=== PATIENT | male | born 1990 | race Caucasian/White ===

== ENCOUNTER 2018-09-28 17:52 | Inpatient (IN) | payer MEDICAID, OTHER ==
[~2018-09-28] VITALS: Ht 182.9 cm; Wt 149.0 kg
[~2018-09-28 17:52] MED LIST: CHLO25TA23 PO; HYDR50CA10 PO; LORA-192 PO; OLAN15TA2 PO; SERT25TA PO; ZOLP10TA2 PO
[2018-09-28] MEDS ORDERED: HALO10 PO (18:29)
[2018-09-28 19:20] LABS: BASOPHILS % (AUTO) 0.9 % (0.0-2.0); EOSINOPHILS % (AUTO) 2.9 % (1.0-6.0); HEMATOCRIT 43.1 % (41-53); HEMOGLOBIN 14.7 g/dL (13.5-17.5); LYMPHOCYTES # (AUTO) 2.6 K/uL (1.0-4.8); LYMPHOCYTES % (AUTO) 26.9 % (22.0-44.0); MEAN CORPUSCULAR HEMOGLOBIN 28.4 pg (26.0-34.0); MEAN CORPUSCULAR HGB CONC 34.1 G/dL (31.0-37.0); MEAN CORPUSCULAR VOLUME 84 fL (80-100); MONOCYTES # (AUTO) 0.6 K/uL (0.1-1.0); MONOCYTES % (AUTO) 6.2 % (2.0-9.0); NEUTROPHILS % (AUTO) 63.1 % (40.0-70.0); PLATELET COUNT (AUTO) 212 K/uL (150-450); RED BLOOD CELL COUNT(AUTO) 5.17 MIL/uL (4.50-5.90); RED CELL DISTRIBUTION WIDTH 13.3 % (11.5-14.5)
[2018-09-28 20:07] LABS: AMPHET/METH SCREEN,URINE NEGATIVE (NEGATIVE); BARBITURATE SCREEN, URINE NEGATIVE (NEGATIVE); BENZODIAZEPINES SCREEN,URINE NEGATIVE (NEGATIVE); CANNABINOID SCREEN,URINE NEGATIVE (NEGATIVE); COCAINE SCREEN,URINE NEGATIVE (NEGATIVE); METHADONE SCREEN, URINE NEGATIVE (NEGATIVE); OPIATE SCREEN,URINE NEGATIVE (NEGATIVE); PHENCYCLIDINE SCREEN,URINE NEGATIVE (NEGATIVE)
[2018-09-28] MEDS ORDERED: QUEtiapine FUMARATE 100 MG TABLET PO ONE (20:30)
[2018-09-28 20:51] LABS: ANION GAP 12 mmol/L (8-16); CALCIUM, TOTAL 9.3 mg/dL (8.8-10.5); CARBON DIOXIDE 26 mmol/L (22-29); CHLORIDE 103 mmol/L (98-107); GLOMERULAR FILTR. RATE CALC > 60 mL/min (>60); GLUCOSE,RANDOM 102 mg/dL (70-110); POTASSIUM 4.2 mmol/L (3.5-5.1); SODIUM SERUM 141 mmol/L (136-145); UREA NITROGEN, BLOOD 12 mg/dL (7-18)
[2018-09-28 20:55] LABS: ALANINE AMINOTRANSFERASE 44 U/L (12-78); ALKALINE PHOSPHATASE 91 U/L (46-116); ASPARTATE AMINOTRANSFERASE 18 U/L (15-37); BILIRUBIN,TOTAL 0.4 mg/dL (0.1-1.0); TOTAL PROTEIN, SERUM 8.4 g/dL (6.4-8.2)
[2018-09-29] MEDS ORDERED: ZOLPIDEM TARTRATE 10 MG TABLET PO ONE
[2018-09-29] MEDS: LORazepam 2 MG TABLET PO PRN ×2 (09:16→16:10)
[2018-09-29] MEDS: HALOPERIDOL 5 MG TABLET PO PRN ×2 (09:16→16:10)
[2018-09-29 10:57] VITALS: BP 124/89
[2018-09-29] MEDS ORDERED: MAG HYDROX/AL HYDROX/SIMETH ES 30 ML SUSPENSION UDCUP PO PRN (12:15)
[2018-09-29] MEDS ORDERED: GuaiFENesin/D-METHORPHAN [SUGAR-FREE] 200-20MG/10 ML SYRUP UDCUP PO PRN (12:15)
[2018-09-29] MEDS ORDERED: CloNIDine HCL 0.1 MG TABLET PO PRN (12:15)
[2018-09-29] MEDS ORDERED: ACETAMINOPHEN 325 MG TABLET PO PRN (12:15)
[2018-09-29] MEDS ORDERED: PETROLATUM,WHITE 28 GM JELLY TP PRN (12:15)
[2018-09-29] MEDS ORDERED: DOCUSATE SODIUM 100 MG CAPSULE PO PRN (12:15)
[2018-09-29] MEDS ORDERED: LOPERAMIDE HCL 2 MG CAPSULE PO PRN (12:15)
[2018-09-29] MEDS ORDERED: ONDANSETRON HCL 4 MG TABLET PO PRN (12:15)
[2018-09-29] MEDS ORDERED: MAGNESIUM HYDROXIDE SUSPENSION 30 ML UDCUP PO PRN (12:15)
[2018-09-29] MEDS ORDERED: NICOTINE 14 MG/24 HOUR PATCH TD PRN (12:15)
[2018-09-29] MEDS ORDERED: IBUPROFEN 400 MG TABLET PO PRN (12:15)
[2018-09-29] MEDS ORDERED: ALBUTEROL SULFATE HFA 90 MCG/PUFF 8 GM INHALER IH PRN (12:15)
[2018-09-29 16:54] VITALS: BP 12/83
[2018-09-29] MEDS: BENZTROPINE MESYLATE 2 MG TABLET PO SCH (20:05)
[2018-09-29] MEDS: HALOPERIDOL 10 MG TABLET PO SCH (20:05)
[2018-09-29] MEDS: ZOLPIDEM TARTRATE 10 MG TABLET PO PRN (20:05)
[2018-09-30 06:29] LABS: BASOPHILS % (AUTO) 0.8 % (0.0-2.0); EOSINOPHILS % (AUTO) 2.8 % (1.0-6.0); HEMATOCRIT 41.8 % (41-53); LYMPHOCYTES # (AUTO) 3.6 K/uL (1.0-4.8); LYMPHOCYTES % (AUTO) 36.1 % (22.0-44.0); MEAN CORPUSCULAR HEMOGLOBIN 28.3 pg (26.0-34.0); MEAN CORPUSCULAR HGB CONC 33.6 G/dL (31.0-37.0); MEAN CORPUSCULAR VOLUME 84 fL (80-100); MONOCYTES # (AUTO) 0.6 K/uL (0.1-1.0); MONOCYTES % (AUTO) 6.2 % (2.0-9.0); NEUTROPHILS # (AUTO) 5.4 K/uL (1.8-7.7); NEUTROPHILS % (AUTO) 54.1 % (40.0-70.0); PLATELET COUNT (AUTO) 192 K/uL (150-450); RED BLOOD CELL COUNT(AUTO) 4.96 MIL/uL (4.50-5.90); RED CELL DISTRIBUTION WIDTH 13.2 % (11.5-14.5)
[2018-09-30 06:38] LABS: HEMOGLOBIN A1C 6.3 % (4.5-6.2)
[2018-09-30 07:00] LABS: ALANINE AMINOTRANSFERASE 34 U/L (12-78); ALBUMIN 3.6 g/dL (3.4-5.0); ALKALINE PHOSPHATASE 86 U/L (46-116); ANION GAP 9 mmol/L (8-16); ASPARTATE AMINOTRANSFERASE 13 U/L (15-37); BILIRUBIN,TOTAL 0.4 mg/dL (0.1-1.0); CALCIUM, TOTAL 8.9 mg/dL (8.8-10.5); CARBON DIOXIDE 30 mmol/L (22-29); CHLORIDE 104 mmol/L (98-107); CHOL/HDL RATIO 4.5 (4.2-7.3); CHOLESTEROL 144 mg/dL (131-200); CREATININE 0.92 mg/dL (0.60-1.30); GLOMERULAR FILTR. RATE CALC > 60 mL/min (>60); GLUCOSE,RANDOM 103 mg/dL (70-110); HDL CHOLESTEROL 32 mg/dL (40-60); LDL CHOL (CALC.) 64 mg/dL (0-130); POTASSIUM 4.2 mmol/L (3.5-5.1); SODIUM SERUM 143 mmol/L (136-145); TOTAL PROTEIN, SERUM 7.3 g/dL (6.4-8.2); TRIGLYCERIDES 238 mg/dL (15-150); UREA NITROGEN, BLOOD 12 mg/dL (7-18)
[2018-09-30 08:20] VITALS: BP 110/72
[2018-09-30] MEDS: HALOPERIDOL 5 MG TABLET PO PRN ×2 (09:40→16:00)
[2018-09-30] MEDS: LORazepam 2 MG TABLET PO PRN ×2 (13:12→17:12)
[2018-09-30 16:54] VITALS: BP 147/95
[2018-09-30] MEDS: HALOPERIDOL 10 MG TABLET PO SCH (20:15)
[2018-09-30] MEDS: ZOLPIDEM TARTRATE 10 MG TABLET PO PRN (20:15)
[2018-09-30] MEDS: BENZTROPINE MESYLATE 2 MG TABLET PO SCH (20:15)
[2018-10-01] MEDS: LORazepam 2 MG TABLET PO PRN ×4 (00:57→23:21)
[2018-10-01 10:18] VITALS: BP 109/60
[2018-10-01] MEDS: HALOPERIDOL 5 MG TABLET PO PRN (12:24)
[2018-10-01 16:21] VITALS: BP 149/78
[2018-10-01] MEDS: BENZTROPINE MESYLATE 2 MG TABLET PO SCH (20:00)
[2018-10-01] MEDS: HALOPERIDOL 10 MG TABLET PO SCH (20:00)
[2018-10-01] MEDS: ZOLPIDEM TARTRATE 10 MG TABLET PO PRN (20:00)
[2018-10-02] MEDS: HALOPERIDOL 5 MG TABLET PO PRN ×2 (08:19→12:55)
[2018-10-02] MEDS: LORazepam 2 MG TABLET PO PRN ×2 (08:20→12:55)
[2018-10-02 08:30] VITALS: BP 106/78
[2018-10-02] MEDS ORDERED: HALO100A IM (12:58)
[2018-10-02] MEDS ORDERED: BENZ2TAB10 PO (12:58)
[2018-10-05] MEDS ORDERED: HALOPERIDOL DECANOATE 100 MG/ML VIAL IM SCH (09:00)
== END 2018-10-02 14:05 | disposition home or self-care (01) | DRG 750 ==
LOC: EMS 17:52 → 3EC 09-29 09:31 → EMS 09-29 10:13
PROVIDERS: ADMIT Psychiatry & Neurology Psychiatry; ATTEND Psychiatry & Neurology Psychiatry
DX: F20.9 Schizophrenia, unspecified (principal); R45.850 Homicidal ideations; E66.9 Obesity, unspecified; F31.9 Bipolar disorder, unspecified; G44.209 Tension-type headache, unspecified, not intractable; R73.03 Prediabetes; Z79.899 Other long term (current) drug therapy; Z68.41 Body mass index [BMI] 40.0-44.9, adult
CPT/HCPCS: 83036; 84443; G0480

== ENCOUNTER 2018-10-04 17:14 | Inpatient (IN) | payer MEDICAID, OTHER ==
[~2018-10-04] VITALS: Ht 182.9 cm; Wt 148.2 kg
[~2018-10-04 17:14] MED LIST changes: +BENZ2TAB10 PO; -CHLO25TA23 PO; +HALO10 PO; +HALO100A IM; -HYDR50CA10 PO; -LORA-192 PO; -OLAN15TA2 PO; -SERT25TA PO; -ZOLP10TA2 PO
[2018-10-04 17:35] LABS: GLUCOSE,POINT OF CARE 143 MG/DL (70-110)
[2018-10-04 19:49] LABS: BASOPHILS % (AUTO) 0.6 % (0.0-2.0); EOSINOPHILS % (AUTO) 1.3 % (1.0-6.0); HEMATOCRIT 42.2 % (41-53); HEMOGLOBIN 14.6 g/dL (13.5-17.5); LYMPHOCYTES # (AUTO) 2.7 K/uL (1.0-4.8); LYMPHOCYTES % (AUTO) 24.5 % (22.0-44.0); MEAN CORPUSCULAR HEMOGLOBIN 28.8 pg (26.0-34.0); MEAN CORPUSCULAR HGB CONC 34.6 G/dL (31.0-37.0); MEAN CORPUSCULAR VOLUME 83 fL (80-100); MONOCYTES # (AUTO) 0.6 K/uL (0.1-1.0); MONOCYTES % (AUTO) 5.5 % (2.0-9.0); NEUTROPHILS # (AUTO) 7.4 K/uL (1.8-7.7); NEUTROPHILS % (AUTO) 68.1 % (40.0-70.0); PLATELET COUNT (AUTO) 230 K/uL (150-450); RED BLOOD CELL COUNT(AUTO) 5.07 MIL/uL (4.50-5.90); RED CELL DISTRIBUTION WIDTH 13.1 % (11.5-14.5)
[2018-10-04 19:58] LABS: ANION GAP 11 mmol/L (8-16); CALCIUM, TOTAL 9.1 mg/dL (8.8-10.5); CARBON DIOXIDE 25 mmol/L (22-29); CHLORIDE 102 mmol/L (98-107); CREATININE 0.75 mg/dL (0.60-1.30); GLOMERULAR FILTR. RATE CALC > 60 mL/min (>60); GLUCOSE,RANDOM 121 mg/dL (70-110); POTASSIUM 3.8 mmol/L (3.5-5.1); SODIUM SERUM 138 mmol/L (136-145); UREA NITROGEN, BLOOD 9 mg/dL (7-18)
[2018-10-04 20:05] LABS: ALANINE AMINOTRANSFERASE 37 U/L (12-78); ALBUMIN 4.1 g/dL (3.4-5.0); ALKALINE PHOSPHATASE 97 U/L (46-116); ASPARTATE AMINOTRANSFERASE 19 U/L (15-37); BILIRUBIN,TOTAL 0.3 mg/dL (0.1-1.0); TOTAL PROTEIN, SERUM 8.5 g/dL (6.4-8.2)
[2018-10-04] MEDS ORDERED: LORazepam 2 MG TABLET PO ONE (21:00)
[2018-10-04] MEDS ORDERED: RisperiDONE 1 MG TABLET PO SCH (21:45)
[2018-10-04 23:03] LABS: AMPHET/METH SCREEN,URINE NEGATIVE (NEGATIVE); BARBITURATE SCREEN, URINE NEGATIVE (NEGATIVE); BENZODIAZEPINES SCREEN,URINE NEGATIVE (NEGATIVE); CANNABINOID SCREEN,URINE NEGATIVE (NEGATIVE); COCAINE SCREEN,URINE NEGATIVE (NEGATIVE); METHADONE SCREEN, URINE NEGATIVE (NEGATIVE); OPIATE SCREEN,URINE NEGATIVE (NEGATIVE); PHENCYCLIDINE SCREEN,URINE NEGATIVE (NEGATIVE)
[2018-10-05 00:45] VITALS: BP 109/69
[2018-10-05] MEDS: ZOLPIDEM TARTRATE 10 MG TABLET PO PRN ×2 (00:55→20:22)
[2018-10-05 02:45] LABS: APPEARANCE,URINE TURBID (CLEAR); BILIRUBIN,URINE NEGATIVE (NEGATIVE); GLUCOSE, URINE (UA) NEGATIVE (NEGATIVE); KETONES,URINE NEGATIVE (NEGATIVE); LEUKOCYTE ESTERASE ,URINE NEGATIVE (NEGATIVE); NITRATE,URINE NEGATIVE (NEGATIVE); OCCULT BLOOD,URINE NEGATIVE (NEGATIVE); PH,URINE 5.5 (5.0-8.0); PROTEIN,URINE NEGATIVE (NEGATIVE); UROBILINOGEN,URINE 0.2 mg/dL (<=1.0)
[2018-10-05 06:39] LABS: CHOL/HDL RATIO 4.6 (4.2-7.3)
[2018-10-05 08:00] VITALS: BP 128/85
[2018-10-05] MEDS: BENZTROPINE MESYLATE 1 MG TABLET PO SCH ×2 (09:05→16:18)
[2018-10-05] MEDS: LORazepam 2 MG TABLET PO PRN ×3 (09:06→18:37)
[2018-10-05] MEDS ORDERED: LACTULOSE 20 GM/30 ML SOLUTION UDCUP PO PRN (15:45)
[2018-10-05] MEDS ORDERED: HALOPERIDOL 5 MG TABLET PO PRN (15:45)
[2018-10-05] MEDS: RisperiDONE 3 MG TABLET PO SCH (16:18)
[2018-10-05 18:35] VITALS: BP 129/79
[2018-10-06 08:00] VITALS: BP 157/96
[2018-10-06] MEDS: RisperiDONE 3 MG TABLET PO SCH (09:19)
[2018-10-06] MEDS: BENZTROPINE MESYLATE 1 MG TABLET PO SCH ×2 (09:19→16:28)
[2018-10-06] MEDS: LORazepam 2 MG TABLET PO PRN ×3 (09:50→21:17)
[2018-10-06] MEDS ORDERED: PALIPERIDONE PALMITATE 234 MG/1.5 ML SYRINGE IM ONE (11:30)
[2018-10-06] MEDS ORDERED: PALI234D IM (13:47)
[2018-10-06 16:55] VITALS: BP 111/77
[2018-10-06] MEDS: ZOLPIDEM TARTRATE 10 MG TABLET PO PRN (20:31)
[2018-10-07 01:10] VITALS: BP 134/73
[2018-10-07 08:00] VITALS: BP 135/94
[2018-10-07] MEDS: LORazepam 2 MG TABLET PO PRN ×2 (08:31→12:58)
[2018-10-07] MEDS: BENZTROPINE MESYLATE 1 MG TABLET PO SCH ×2 (08:31→16:33)
[2018-10-07 11:40] LABS: GLUCOMETER DEV NAME(LOC) 3E.I; GLUCOSE,POINT OF CARE 112 MG/DL (70-110)
[2018-10-07] MEDS: MetFORMIN HCL 500 MG TABLET PO SCH (11:43)
[2018-10-07 17:13] VITALS: BP 140/98
[2018-10-07] MEDS: ZOLPIDEM TARTRATE 10 MG TABLET PO PRN (20:23)
[2018-10-08 00:13] VITALS: BP 142/92
[2018-10-08] MEDS: LORazepam 2 MG TABLET PO PRN ×4 (00:33→20:48)
[2018-10-08 06:10] LABS: GLUCOMETER DEV NAME(LOC) 3E.I; GLUCOSE,POINT OF CARE 98 MG/DL (70-110)
[2018-10-08] MEDS: MetFORMIN HCL 500 MG TABLET PO SCH (06:36)
[2018-10-08 08:15] VITALS: BP 144/74
[2018-10-08] MEDS: BENZTROPINE MESYLATE 1 MG TABLET PO SCH ×2 (08:41→16:43)
[2018-10-08 17:05] LABS: GLUCOMETER DEV NAME(LOC) 3E.I; GLUCOSE,POINT OF CARE 112 MG/DL (70-110)
[2018-10-08 19:14] VITALS: BP 127/74
[2018-10-08] MEDS: ZOLPIDEM TARTRATE 10 MG TABLET PO PRN (21:27)
[2018-10-09 06:14] LABS: GLUCOMETER DEV NAME(LOC) 3E.I; GLUCOSE,POINT OF CARE 116 MG/DL (70-110)
[2018-10-09] MEDS: MetFORMIN HCL 500 MG TABLET PO SCH (06:50)
[2018-10-09] MEDS: BENZTROPINE MESYLATE 1 MG TABLET PO SCH (09:18)
[2018-10-09 09:51] VITALS: BP 108/63
[2018-10-09] MEDS: LORazepam 2 MG TABLET PO PRN (12:24)
[2018-10-09] MEDS ORDERED: METF-960 PO (14:22)
[2018-10-10] MEDS ORDERED: PALI234D IM (10:43)
== END 2018-10-09 14:50 | disposition home or self-care (01) | DRG 750 ==
LOC: EMS 17:16 → 3EI 21:30
PROVIDERS: ADMIT Psychiatry & Neurology Psychiatry; ATTEND Psychiatry & Neurology Psychiatry
DX: F20.0 Paranoid schizophrenia (principal); R45.851 Suicidal ideations; R45.850 Homicidal ideations; E78.5 Hyperlipidemia, unspecified; F31.9 Bipolar disorder, unspecified; G44.209 Tension-type headache, unspecified, not intractable; G47.33 Obstructive sleep apnea (adult) (pediatric); K59.00 Constipation, unspecified; R73.03 Prediabetes
CPT/HCPCS: 87081; 94660; G0480

== ENCOUNTER 2021-12-11 15:16 | Inpatient (IN) | payer MEDICAID, OTHER ==
[~2021-12-11] VITALS: Ht 182.9 cm; Wt 143.3 kg
[~2021-12-11 15:16] MED LIST changes: -BENZ2TAB10 PO; +BENZ2TAB76 PO; -HALO10 PO; -HALO100A IM; +METF-1211 PO; +PALI234D IM
[2021-12-11 16:01] LABS: COVID AG,FIA SOURCE NASOPHARYNGEAL
[2021-12-11 16:13] LABS: AMPHET/METH SCREEN,URINE NEGATIVE (NEGATIVE); BARBITURATE SCREEN, URINE NEGATIVE (NEGATIVE); BENZODIAZEPINES SCREEN,URINE NEGATIVE (NEGATIVE); CANNABINOID SCREEN,URINE NEGATIVE (NEGATIVE); COCAINE SCREEN,URINE NEGATIVE (NEGATIVE); METHADONE SCREEN, URINE NEGATIVE (NEGATIVE); OPIATE SCREEN,URINE NEGATIVE (NEGATIVE); PHENCYCLIDINE SCREEN,URINE NEGATIVE (NEGATIVE)
[2021-12-11 16:46] LABS: BASOPHILS % (AUTO) 0.3 % (0.0-2.0); EOSINOPHILS % (AUTO) 3.1 % (1.0-6.0); HEMATOCRIT 40.4 % (41-53); HEMOGLOBIN 13.7 g/dL (13.5-17.5); LYMPHOCYTES # (AUTO) 2.1 K/uL (1.0-4.8); LYMPHOCYTES % (AUTO) 26.9 % (22.0-44.0); MEAN CORPUSCULAR HEMOGLOBIN 29.5 pg (26.0-34.0); MEAN CORPUSCULAR HGB CONC 33.8 G/dL (31.0-37.0); MEAN CORPUSCULAR VOLUME 87 fL (80-100); MONOCYTES # (AUTO) 0.4 K/uL (0.1-1.0); MONOCYTES % (AUTO) 5.2 % (2.0-9.0); NEUTROPHILS % (AUTO) 64.5 % (40.0-70.0); PLATELET COUNT (AUTO) 161 K/uL (150-450); RED BLOOD CELL COUNT(AUTO) 4.63 MIL/uL (4.50-5.90); RED CELL DISTRIBUTION WIDTH 13.3 % (11.5-14.5)
[2021-12-11 16:58] LABS: ANION GAP 8 mmol/L (8-16); CALCIUM, TOTAL 8.7 mg/dL (8.8-10.5); CARBON DIOXIDE 27 mmol/L (22-29); CHLORIDE 105 mmol/L (98-107); CREATININE 0.88 mg/dL (0.60-1.30); GLOMERULAR FILTR. RATE CALC > 60 mL/min (>60); GLUCOSE,RANDOM 93 mg/dL (70-110); POTASSIUM 3.7 mmol/L (3.5-5.1); SODIUM SERUM 140 mmol/L (136-145); UREA NITROGEN, BLOOD 12 mg/dL (7-18)
[2021-12-11 17:03] LABS: ALANINE AMINOTRANSFERASE 22 U/L (12-78); ALBUMIN 3.8 g/dL (3.4-5.0); ALKALINE PHOSPHATASE 70 U/L (46-116); ASPARTATE AMINOTRANSFERASE 15 U/L (15-37); BILIRUBIN,TOTAL 0.4 mg/dL (0.1-1.0); TOTAL PROTEIN, SERUM 7.1 g/dL (6.4-8.2)
[2021-12-11] MEDS ORDERED: HALOPERIDOL 5 MG TABLET PO PRN (17:30)
[2021-12-11] MEDS ORDERED: ZOLPIDEM TARTRATE 10 MG TABLET PO PRN (17:30)
[2021-12-12 00:27] VITALS: BP 142/90
[2021-12-12] MEDS ORDERED: MAG HYDROX/AL HYDROX/SIMETH ES 30 ML SUSPENSION UDCUP PO PRN (08:00)
[2021-12-12] MEDS ORDERED: DOCUSATE SODIUM 100 MG CAPSULE PO PRN (08:00)
[2021-12-12] MEDS ORDERED: GuaiFENesin/D-METHORPHAN [SUGAR-FREE] 200-20MG/10 ML SYRUP UDCUP PO PRN (08:00)
[2021-12-12] MEDS ORDERED: LOPERAMIDE HCL 2 MG CAPSULE PO PRN (08:00)
[2021-12-12] MEDS ORDERED: NICOTINE 14 MG/24 HOUR PATCH TD PRN (08:00)
[2021-12-12] MEDS ORDERED: ACETAMINOPHEN 325 MG TABLET PO PRN (08:00)
[2021-12-12] MEDS ORDERED: PETROLATUM,WHITE 28 GM JELLY TP PRN (08:00)
[2021-12-12] MEDS ORDERED: ONDANSETRON HCL 4 MG TABLET PO PRN (08:00)
[2021-12-12] MEDS ORDERED: ALBUTEROL SULFATE HFA 90 MCG/PUFF 8 GM INHALER IH PRN (08:00)
[2021-12-12] MEDS ORDERED: MAGNESIUM HYDROXIDE SUSPENSION 30 ML UDCUP PO PRN (08:00)
[2021-12-12] MEDS ORDERED: CloNIDine HCL 0.1 MG TABLET PO PRN (08:00)
[2021-12-12] MEDS ORDERED: IBUPROFEN 400 MG TABLET PO PRN (08:00)
[2021-12-12 08:23] VITALS: BP 141/86
[2021-12-12] MEDS ORDERED: BENZTROPINE MESYLATE 2 MG TABLET PO SCH (09:00)
[2021-12-12] MEDS ORDERED: TRAZ-257 PO (09:35)
[2021-12-12] MEDS ORDERED: BUSP30TA2 PO (09:35)
[2021-12-12] MEDS ORDERED: QUET200T30 PO (09:35)
[2021-12-12] MEDS ORDERED: RISP2TAB45 PO (09:35)
[2021-12-12] MEDS: RisperiDONE 2 MG TABLET PO SCH (10:10)
[2021-12-12] MEDS: QUEtiapine FUMARATE 200 MG TABLET PO SCH ×2 (10:10→20:46)
[2021-12-12] MEDS: BusPIRone HCL 10 MG TABLET PO SCH ×3 (10:10→20:48)
[2021-12-12] MEDS: LORazepam 2 MG TABLET PO PRN (16:55)
[2021-12-12 20:17] VITALS: BP 127/80
[2021-12-12] MEDS: TraZODone HCL 100 MG TABLET PO SCH (20:46)
[2021-12-13] MEDS: MetFORMIN HCL 500 MG TABLET PO SCH (06:32)
[2021-12-13 08:27] VITALS: BP 117/68
[2021-12-13] MEDS: BusPIRone HCL 10 MG TABLET PO SCH ×3 (09:22→20:07)
[2021-12-13] MEDS: QUEtiapine FUMARATE 200 MG TABLET PO SCH ×2 (09:22→20:07)
[2021-12-13] MEDS: RisperiDONE 2 MG TABLET PO SCH (09:22)
[2021-12-13] MEDS: TraZODone HCL 100 MG TABLET PO SCH (20:07)
[2021-12-13 20:24] VITALS: BP 118/73
[2021-12-14] MEDS: MetFORMIN HCL 500 MG TABLET PO SCH (06:03)
[2021-12-14] MEDS: BusPIRone HCL 10 MG TABLET PO SCH ×2 (08:19→16:03)
[2021-12-14] MEDS: LORazepam 2 MG TABLET PO PRN (08:20)
[2021-12-14] MEDS: RisperiDONE 2 MG TABLET PO SCH (08:20)
[2021-12-14] MEDS: QUEtiapine FUMARATE 200 MG TABLET PO SCH (08:20)
[2021-12-14 08:46] VITALS: BP 120/77
[2021-12-14] MEDS ORDERED: BUSP10TA23 PO ×2 (10:33→10:56)
[2021-12-14] MEDS ORDERED: QUET200T30 PO (10:56)
[2021-12-14] MEDS ORDERED: TRAZ-257 PO (10:56)
[2021-12-14] MEDS ORDERED: RISP2TAB86 PO (10:56)
== END 2021-12-14 17:33 | disposition home or self-care (01) | DRG 750 ==
LOC: EMS 15:40 → B2S 19:11 → B3A 23:34
PROVIDERS: ADMIT Psychiatry & Neurology Psychiatry; ATTEND Psychiatry & Neurology Psychiatry
DX: F25.0 Schizoaffective disorder, bipolar type (principal); E11.9 Type 2 diabetes mellitus without complications; E66.9 Obesity, unspecified; X78.0XXA Intentional self-harm by sharp glass, initial encounter; F31.9 Bipolar disorder, unspecified; Z20.822 Contact with and (suspected) exposure to COVID-19; G47.00 Insomnia, unspecified; S61.411A Laceration without foreign body of right hand, initial encounter; Z68.41 Body mass index [BMI] 40.0-44.9, adult; Y93.89 Activity, other specified; Y92.89 Other specified places as the place of occurrence of the external cause; Y99.8 Other external cause status; Z79.899 Other long term (current) drug therapy
CPT/HCPCS: 80053; 85025; 99285; G0480